=== PATIENT | female | born 1950 | race Caucasian/White ===

== ENCOUNTER 2016-09-24 11:51 | Emergency (ER) | payer MEDICARE | END 2016-09-24 13:49 | disposition home or self-care (01) | LOC: D.ER 11:51 | DX: I96 Gangrene, not elsewhere classified (principal); I10 Essential (primary) hypertension; E78.5 Hyperlipidemia, unspecified ==

== ENCOUNTER 2018-04-02 15:16 | Emergency (ER) | payer OTHER, MEDICARE ==
[~2018-04-02] VITALS: Ht 144.8 cm; Wt 77.3 kg
[2018-04-02 15:26] VITALS: Ht 144.8 cm; Wt 77.3 kg
[2018-04-02] MEDS ORDERED: COZAAR100 MG PO (15:27)
[2018-04-02] MEDS ORDERED: OMEPRAZOLE20 M1 PO (15:27)
[2018-04-02] MEDS ORDERED: GEMFIBROZIL600 MG PO (15:28)
[2018-04-02] MEDS ORDERED: NEURONTIN 300300 MG PO (15:28)
[2018-04-02] MEDS ORDERED: HYDROCHLOROTHIA25 MG PO (15:28)
[2018-04-02] MEDS ORDERED: LOPRESSOR25 MG PO (15:29)
[2018-04-02] MEDS ORDERED: CATAPRES0.1 MG PO (15:50)
[2018-04-02 16:05] VITALS: BP 168/85
== END 2018-04-02 16:05 | disposition home or self-care (01) ==
LOC: D.ER 15:16
DX: I10 Essential (primary) hypertension (principal)

== ENCOUNTER 2019-02-20 20:44 | Emergency (ER) | payer MEDICARE, MEDICAID ==
[~2019-02-20] VITALS: Ht 144.8 cm; Wt 77.3 kg
[~2019-02-20 20:44] MED LIST: CATAPRES0.1 MG PO; COZAAR100 MG PO; GEMFIBROZIL600 MG PO; HYDROCHLOROTHIA25 MG PO; LOPRESSOR25 MG PO; NEURONTIN 300300 MG PO; OMEPRAZOLE20 M1 PO
[2019-02-20 20:46] VITALS: Ht 144.8 cm; Wt 77.3 kg
[2019-02-20] MEDS ORDERED: NEURONTIN600 MG PO (20:49)
[2019-02-20] MEDS ORDERED: ULTRAM50 MG PO (20:50)
[2019-02-20] MEDS ORDERED: FISH OIL 1,0001 CA1 PO (20:50)
[2019-02-20] MEDS ORDERED: GLUCOSAMINE HC500 MG PO (20:50)
[2019-02-20] MEDS ORDERED: BAYER CHEWABLE81 MG PO (20:51)
[2019-02-20] MEDS ORDERED: ACETAMINOPHEN500 M1 PO (20:52)
[2019-02-21 00:09] VITALS: BP 163/74
== END 2019-02-21 00:09 | disposition home or self-care (01) ==
LOC: D.ER 20:44
DX: T40.4X1A Poisoning by other synthetic narcotics, accidental (unintentional), initial encounter (principal); I10 Essential (primary) hypertension; M19.90 Unspecified osteoarthritis, unspecified site

== ENCOUNTER 2019-04-08 19:18 | Emergency (ER) | payer MEDICARE, MEDICAID ==
[~2019-04-08] VITALS: Ht 144.8 cm; Wt 81.8 kg
[~2019-04-08 19:18] MED LIST changes: +ACETAMINOPHEN500 M1 PO; +BAYER CHEWABLE81 MG PO; +FISH OIL 1,0001 CA1 PO; +GLUCOSAMINE HC500 MG PO; +NEURONTIN600 MG PO; +ULTRAM50 MG PO
[2019-04-08 19:31] VITALS: Ht 144.8 cm; Wt 81.8 kg
[2019-04-08] MEDS ORDERED: TAMIFLU75 MG PO (20:42)
[2019-04-08 20:52] VITALS: BP 125/61
== END 2019-04-08 20:51 | disposition home or self-care (01) ==
LOC: D.ER 19:18
DX: J09.X2 Influenza due to identified novel influenza A virus with other respiratory manifestations (principal); I10 Essential (primary) hypertension; E78.5 Hyperlipidemia, unspecified

== ENCOUNTER 2020-01-20 07:51 | Observation (INO) | payer MEDICARE, MEDICAID ==
[~2020-01-20] VITALS: Ht 144.8 cm; Wt 75.8 kg
[~2020-01-20 07:51] MED LIST changes: -ACETAMINOPHEN500 M1 PO; +ASPIRIN EC81 MG PO; -BAYER CHEWABLE81 MG PO; +TAMIFLU75 MG PO; +TYLENOL ARTHRI650 MG PO
[2020-01-20 08:34] LABS: BASOPHILS 0.1 % (0-2); EOSINOPHILS 1.4 % (0-7); HEMATOCRIT 35.9 % (36.0-48.0); HEMOGLOBIN 11.1 g/dL (12-16); IMMATURE GRANULOCYTES 0.1 % (0-5); LYMPHOCYTES 24.9 % (15-50); MCH 27.3 pg (26.0-34.0); MCHC 30.9 g/dL (31.0-37.0); MCV 88.4 fL (80.0-100.0); MONOCYTES 6.2 % (2-11); NEUTROPHILS 67.3 % (40-80); PLATELET COUNT 336 10x3/uL (130-400); RBC 4.06 10x6/uL (4.00-5.40); RDW 14.1 % (11.5-14.5); WBC 7.3 10x3/uL (4.8-10.8)
[2020-01-20 08:37] LABS: APTT 29.7 SECONDS (22.8-39.4); INR 1.06 (0.85-1.17); PROTIME 13.8 SECONDS (11.6-15.0)
[2020-01-20 08:55] LABS: CALC OSMOLALITY 286 mosm/kg (275-300); CALCIUM 8.8 mg/dL (8.5-10.1); CARBON DIOXIDE 25.5 mmol/L (21.0-32.0); CHLORIDE - SERUM 107 mmol/L (98-107); CREATININE - SERUM 0.8 mg/dL (0.6-1.3); GLUCOSE 98 mg/dL (74-106); POTASSIUM - SERUM 3.3 mmol/L (3.5-5.1); SODIUM 144 mmol/L (136-145); UREA NITROGEN 12 mg/dL (7-18); eGFR NON AFRICAN AMERICAN 75 mL/min (90-120)
[2020-01-20 08:56] VITALS: BP 181/85
[2020-01-20 09:09] LABS: ALBUMIN 3.1 g/dL (3.4-5.0); ALKALINE PHOSPHATASE 86 U/L (30-120); BILIRUBIN - TOTAL 0.35 mg/dL (0.2-1.3); CKMB 0.8 U/L (0.0-3.6); CREATINE KINASE 60 UL (21-215); MAGNESIUM - SERUM 1.6 mg/dL (1.8-2.4); PROTEIN - SERUM 6.5 g/dL (6.4-8.2); TROPONIN-I 0.025 ng/mL (0.000-0.060)
[2020-01-20 09:10] LABS: ALT (SGPT) < 6 U/L (10-68)
[2020-01-20 10:03] VITALS: BP 164/83
--- NOTE | 2020-01-20 10:56 | NUR ---
JEAN PIERRE OBTAINED AND SENT TO LAB
[2020-01-20 13:00] VITALS: BP 169/81
[2020-01-20] MEDS ORDERED: ZOCOR40 MG PO (17:39)
[2020-01-20] MEDS ORDERED: HYDRALAZINE HC100 MG PO (17:40)
[2020-01-20 17:41] LABS: CKMB 0.8 U/L (0.0-3.6); CREATINE KINASE 63 UL (21-215); TROPONIN-I 0.027 ng/mL (0.000-0.060)
[2020-01-20 19:53] VITALS: BP 143/73
[2020-01-20 20:00] VITALS: BP 159/71
[2020-01-20 21:41] VITALS: BP 159/77; BMI 36.2
--- NOTE | 2020-01-20 21:52 | NUR ---
RECEIVED PT FROM ER. PT IS AAO AND UP AD LORENA. CALL LIGHT W/I REACH. FALL PRECAUTIONS IN PLACE. PIV TO RIGHT HAND SALINE LOCKED. TELEMETRY APPLIED. RR EVEN AND UNLABORED ON RA. VSS AND WNL. QUICKSTART, HISTORY, AND MED REQ, AND ASSESSMENT COMPLETE. WILL CTM.
[2020-01-20 23:53] LABS: CKMB 0.9 U/L (0.0-3.6); CREATINE KINASE 83 UL (21-215)
[2020-01-20 23:54] LABS: TROPONIN-I < 0.017 ng/mL (0.000-0.060)
[2020-01-21 04:00] VITALS: BP 159/78
[2020-01-21 07:24] VITALS: BP 171/87
--- NOTE | 2020-01-21 09:34 | NUR ---
PATIENT IS SITTING UP IN BED, PLAN OF CARE REVIEWED AND ASSESSMENT HAS BEEN COMPLETED. PATIENT HAS LOTS OF QUESTIONS THIS AMD WANTS TO GO HOME. PATIENT STATES SHE HAS AN AUTISTIC DAUGHTER AND SHE NEEDS TO BE THERE WITH HER. CASE MGT IN ROOM. CALL LIGHT IN REACH. NAD NOTED.
[2020-01-21 10:28] LABS: BASOPHILS 0.1 % (0-2); EOSINOPHILS 0.5 % (0-7); HEMATOCRIT 36.2 % (36.0-48.0); IMMATURE GRANULOCYTES 0.2 % (0-5); LYMPHOCYTES 22.6 % (15-50); MCH 27.2 pg (26.0-34.0); MCHC 30.4 g/dL (31.0-37.0); MCV 89.4 fL (80.0-100.0); MEAN PLATELET VOLUME 9.3 fL (7.4-10.4); NEUTROPHILS 70.6 % (40-80); PLATELET COUNT 327 10x3/uL (130-400); RBC 4.05 10x6/uL (4.00-5.40); RDW 14.5 % (11.5-14.5); WBC 8.8 10x3/uL (4.8-10.8)
[2020-01-21 10:42] LABS: ALBUMIN 3.2 g/dL (3.4-5.0); ANION GAP 13.4 mmol/L (8-16); BILIRUBIN - TOTAL 0.41 mg/dL (0.2-1.3); CALCIUM 8.7 mg/dL (8.5-10.1); CREATININE - SERUM 0.9 mg/dL (0.6-1.3); MAGNESIUM - SERUM 1.7 mg/dL (1.8-2.4); POTASSIUM - SERUM 3.4 mmol/L (3.5-5.1); PROTEIN - SERUM 6.6 g/dL (6.4-8.2)
[2020-01-21 12:00] VITALS: BP 154/83
--- NOTE | 2020-01-21 12:49 | NUR ---
NURSE CALLS [employer] RUG SETTER MASON TENDER TO SEE IF SHE COULD GIVE PATIENT PRN TYLENOL FOR HEADACHE.
[2020-01-21 13:31] VITALS: Ht 144.8 cm; Wt 75.8 kg
--- NOTE | 2020-01-21 20:00 | NUR ---
INITIAL ROUNDS AND ASSESSMENT COMPLETED. PT RESTING IN BED. DAUGHTER AT BEDSIDE. PT DENIES PAIN OR DISCOMFORT. CALL LIGHT IN REACH. CPOC.
[2020-01-21 21:00] VITALS: BP 165/71
--- NOTE | 2020-01-21 23:38 | NUR ---
C/O GENERALIZED PAIN/DISCOMFORT. MEDICATED WITH ULTRAM. DAUGHTER AT BEDSIDE.
[2020-01-22 05:00] VITALS: BP 142/69
[2020-01-22 07:05] LABS: BASOPHILS 0.1 % (0-2); EOSINOPHILS 1.6 % (0-7); HEMATOCRIT 33.2 % (36.0-48.0); HEMOGLOBIN 10.1 g/dL (12-16); IMMATURE GRANULOCYTES 0.3 % (0-5); LYMPHOCYTES 27.3 % (15-50); MCH 27.5 pg (26.0-34.0); MCHC 30.4 g/dL (31.0-37.0); MCV 90.5 fL (80.0-100.0); MEAN PLATELET VOLUME 9.6 fL (7.4-10.4); MONOCYTES 7.5 % (2-11); NEUTROPHILS 63.2 % (40-80); PLATELET COUNT 315 10x3/uL (130-400); RBC 3.67 10x6/uL (4.00-5.40); RDW 14.8 % (11.5-14.5); WBC 8.8 10x3/uL (4.8-10.8)
[2020-01-22 07:35] LABS: ALBUMIN 2.8 g/dL (3.4-5.0); ALKALINE PHOSPHATASE 75 U/L (30-120); BILIRUBIN - TOTAL 0.27 mg/dL (0.2-1.3); CALC OSMOLALITY 285 mosm/kg (275-300); CALCIUM 8.4 mg/dL (8.5-10.1); CARBON DIOXIDE 25.5 mmol/L (21.0-32.0); CHLORIDE - SERUM 107 mmol/L (98-107); CREATININE - SERUM 0.8 mg/dL (0.6-1.3); GLUCOSE 91 mg/dL (74-106); POTASSIUM - SERUM 3.5 mmol/L (3.5-5.1); PROTEIN - SERUM 6.4 g/dL (6.4-8.2); SODIUM 143 mmol/L (136-145); UREA NITROGEN 15 mg/dL (7-18); eGFR NON AFRICAN AMERICAN 75 mL/min (90-120)
[2020-01-22 07:36] LABS: ALT (SGPT) 9 U/L (10-68)
[2020-01-22 10:53] VITALS: BP 153/75
[2020-01-22] MEDS ORDERED: OMNICEF300 MG PO (12:07)
[2020-01-22] MEDS ORDERED: ZITHROMAX TRI-500 MG PO (12:07)
[2020-01-22] MEDS ORDERED: TESSALON PERLE100 MG PO (12:08)
[2020-01-22] MEDS ORDERED: MUCINEX600 MG PO (12:08)
--- NOTE | 2020-01-22 12:34 | NUR ---
OK TO D/C PER DR. TEJADA.
--- NOTE | 2020-01-22 13:16 | NUR ---
PROVIDED VERBAL AND WRITTEN DISCHARGE TEACHING TO PT, WHO VERBALIZED UNDERSTANDING REGARDING TEACHING. D/C LT HAND IV WITH CATHETER TIP INTACT. HEART MONITOR REMOVED AND TAKEN TO BEET WORKER. PT WAITING ON RIDE, WILL NOTIFY NURSE WHEN READY FOR WHEELCHAIR.
--- NOTE | 2020-01-22 13:55 | NUR ---
WHEELED PT TO ER ENTRANCE WITH ALL BELONGINGS, NAD NOTED.
--- NOTE | 2020-01-22 15:39 | MORECARE ---
CASE MANAGEMENT DISCHARGE SUMMARY PATIENT: HENRY HART UNIT: [id number] ADM DATE: 01/20/20 AGE: 69 : 48 SEX: F ROOM/BED: D.4246 AUTHOR: JACINTO MILLER PHYSICIAN: REFERRING PHYSICIAN: KRISTINA NOEL MD DATE OF SERVICE: 01/22/20 Discharge Plan Patient Name[facility] 1950 Planned Disposition: Home Anticipated Discharge Date: 01/22/20 Discharge Date: 01/22/2020 Expected LOS: 2 Initial Reviewer: [email or web address] Initial Review Date: 01/20/2020 Generated: 01/22/20 4:38 pm Coverage Notice Reviewer: [email or web address] Sri [place] Notice Issued Date-Time: 01/21/2020 8:10 Notice Type: Medicare Outpatient Observation Notice Notice Delivered To: Patient Relationship to Patient: Self Spark Plug Assembler Name: Delivery Method: HAND - Hand Delivered Marybeth Days: Prior Verbal Notification: Recipient Understood Notice: Yes Recipient Signature: Yes Med Rec Note Co-signed by Attending: Coverage Notice Comment: JOSEPH SERVED, EXPLAINED, AND SIGNED BY PATIENT. THE ORIGINAL WAS PROVIDED TO THE PATIENT AND COPY PLACED ON CHART. Patient Name: HENRY HART Page [id number] at 1539 All edits/amendments must be made on the electronic document DICTATION DATE: 01/22/201538 HOUSEKEEPER HEAD: DEMETRA 01/22/20 153 RPT#: [id number] DC DATE:01/22/20 STATUS: DIS IN [facility] [address] [place] [address] END OF REPORT
== END 2020-01-22 13:56 | disposition home or self-care (01) ==
LOC: D.ER 07:51 → D.M2 10:06 → OBSVTIME 10:06 → D.M2 01-22 13:56
PROVIDERS: Emergency Medicine; ADMIT Family Medicine; ATTEND Family Medicine
DX: I16.1 Hypertensive emergency (principal); E78.5 Hyperlipidemia, unspecified; E66.9 Obesity, unspecified; Z68.36 Body mass index [BMI] 36.0-36.9, adult; J18.9 Pneumonia, unspecified organism; D64.9 Anemia, unspecified